=== PATIENT | female | born 1975 | race Caucasian/White ===

== ENCOUNTER 2021-08-25 18:34 | Emergency (ER) | payer MEDICAID ==
--- NOTE | 2021-08-25 19:52 | EDM.PDOC ---
ED HPI GENERAL MEDICAL PROBLEM - General Chief Complaint: Lower Extremity Injury/Pain Stated Complaint: R ANKLE INJURY Time Seen by Provider: 08/25/21 19:35 Source of Information: Reports: Patient - History of Present Illness INITIAL COMMENTS - FREE TEXT/NARRATIVE: 45-year-old lady came to the emergency department after a 2 to 3-day history of right heel pain. She cannot think of anything that she did in particular hurt her heel she does not know of any trauma. She does have a history of a fracture of her right ankle. She states that her heel has been hurting for 2 to 3 days but the pain increased significantly today and she decided to come to the emergency department. Denies all other review of systems. She does have chronic back pain and possible degenerative disc disease. Left Feet Pain Score (Numeric/FACES): 4 - Related Data Allergies Allergy/AdvReac Type Severity Reaction Status Date / Time No Known Allergies Allergy Verified 08/25/21 19:06 Home Meds: Home Meds NK [No Known Home Meds] 08/25/21 [History] Social & Family History - Tobacco Use Tobacco Use Status *Q: Current Every Day Tobacco User Years of Tobacco use: 1 Packs/Tins Daily: 30 - Caffeine Use Caffeine Use: Reports: Coffee - Recreational Drug Use Recreational Drug Use: No Review of Systems - Review of Systems Review Of Systems: See Below Constitutional: Reports: No Symptoms Eyes: Reports: No Symptoms Ears: Reports: No Symptoms Nose: Reports: No Symptoms Mouth/Throat: Reports: No Symptoms Respiratory: Reports: No Symptoms Cardiovascular: Reports: No Symptoms GI/Abdominal: Reports: No Symptoms Genitourinary: Reports: No Symptoms Musculoskeletal: Reports: Back Pain, Foot Pain Skin: Reports: No Symptoms Neurological: Reports: No Symptoms Psychiatric: Reports: No Symptoms ED EXAM, GENERAL - Physical Exam Exam: See Below Exam Limited By: No Limitations General Appearance: Alert, No Apparent Distress Eye Exam: Bilateral Eye: EOMI Head: Atraumatic, Normocephalic Respiratory/Chest: No Respiratory Distress, Lungs Clear Cardiovascular: Normal Peripheral Pulses, Regular Rate, Rhythm Peripheral Pulses: 2+: Radial (L), Radial (R), Dorsalis Pedis (L), Dorsalis Pedis (R) GI/Abdominal: Normal Bowel Sounds, Non-Tender Back Exam: Normal Inspection Extremities: Other (Inspection of the bilateral feet shows no obvious visual differences such as swelling, ecchymosis, erythema. Palpation of the right ank le shows significant tenderness over the center of the calcaneus on the plantar surface with mild tenderness to palpation along the lateral navicular bone) Neurological: Alert, Oriented Psychiatric: Other (Labile) Skin Exam: Warm, Dry Course - Vital Signs Text/Narrative:: View of x-ray of the right calcaneus shows likely osteoarthritis with a small heel spur. Last Recorded V/S: Last Vital Signs Temp 36.2 C 08/25/21 18:34 Pulse 69 08/25/21 18:34 Resp 18 08/25/21 18:34 BP 127/65 08/25/21 18:34 Pulse Ox 98 08/25/21 18:34 - Orders/Labs/Meds Orders: Active Orders 24 hr Category Date Time Status Calcaneous Rt [CR] Stat Exams 08/25/21 20:25 Taken Departure - Departure Time of Disposition: 21:24 Disposition: Home, Self-Care 01 Condition: Good Clinical Impression: Osteoarthritis of ankle, right, Heel spur - Discharge Information *PRESCRIPTION DRUG MONITORING PROGRAM REVIEWED*: Not Applicable *COPY OF PRESCRIPTION DRUG MONITORING REPORT IN PATIENT VANNESA: Not Applicable Instructions: What You Need to Know About Osteoarthritis, Arthritis, [id number] Referrals: Madhuri Baltazar NP [Primary Care Provider] - Forms: ED Department Discharge Additional Instructions: Review of your x-ray shows that you likely have osteoarthritis in 1 or more joints around the navicular bone of your right foot. You also likely have a small heel spur on the plantar surface/bottom surface of your right heel/calcaneus bone. It would be dinero to follow-up with your primary care physician and/or try to get an appointment with a open hearth laborer for further evaluation and definitive treatment. Can use ice to help with pain. You can also alternate Tylenol and ibuprofen to help with pain. For example you could take 500 mg of acetaminophen/Tylenol and then 2 hours later take 400 mg of ibuprofen. Then, 2 hours later, you could take another 500 mg of ac etaminophen/Tylenol and then 2 hours later 400 mg of ibuprofen. Do not take ibuprofen and naproxen together. Sepsis Event Note (ED) - Evaluation Sepsis Screening Result: No Definite Risk - Focused Exam Vital Signs: Vital Signs Temp Pulse Resp BP Pulse Ox 08/25/21 18:34 36.2 C 69 18 127/65 98 - My Orders Last 24 Hours: My Active Orders 08/25/21 20:25 Calcaneous Rt [CR] Stat - Assessment/Plan Last 24 Hours: My Active Orders 08/25/21 20:25 Calcaneous Rt [CR] Stat
--- NOTE | 2021-08-27 11:31 | CR ---
INDICATION: Suspect heel spur and/or tarsal sinus syndrome. No known recent injury. History of broken ankle at age 15. RIGHT CALCANEUS: Posterior tangential and lateral views of the right calcaneus revealed no definite bone or joint abnormality. No specific spurs could be identified. No significant-appearing degenerative change was noted. The Achilles tendon appears intact. IMPRESSION: Normal-appearing right ankle. MTDD
== END 2021-08-25 21:38 | disposition home or self-care (01) ==
LOC: FB.ED 18:34
DX: M19.90 Unspecified osteoarthritis, unspecified site (principal); M77.31 Calcaneal spur, right foot; Z72.0 Tobacco use
CPT/HCPCS: 73650-RT; 99283

== ENCOUNTER 2023-11-20 22:02 | Emergency (ER) | payer SELFPAY ==
[2023-11-20] MEDS ORDERED: Naproxen 250 MG Tab PO ONE (22:03)
[2023-11-20] MEDS ORDERED: Cyclobenzaprine 10 MG Tab PO ONE (22:03)
== END 2023-11-20 22:40 | disposition home or self-care (01) ==
LOC: FB.ED 22:02
DX: M19.071 Primary osteoarthritis, right ankle and foot (principal); M54.2 Cervicalgia
CPT/HCPCS: 99283; A9270-GY

== ENCOUNTER 2024-05-17 19:48 | Emergency (ER) | payer SELFPAY | END 2024-05-17 20:15 | disposition home or self-care (01) | LOC: FB.ED 19:48 | DX: T63.441A Toxic effect of venom of bees, accidental (unintentional), initial encounter (principal); J44.1 Chronic obstructive pulmonary disease with (acute) exacerbation; F17.210 Nicotine dependence, cigarettes, uncomplicated | CPT/HCPCS: 99283 ==